=== PATIENT | male | born 1990 | race African-American/Black ===

== ENCOUNTER → 2025-06-01 | Outpatient (CLI) | payer OTHER ==
[~2025-06-01] MED LIST: IBUP200C25 PO
[2025-06-01 19:12] LABS: BASO # 0.0 10^3/uL (0.0-0.2); BASO % 0.4 % (0.0-1.0); EOS # 0.1 10^3/uL (0.0-0.5); EOS % 0.6 % (0.0-3.0); LYMPH # 2.5 10^3/uL (1.5-5.0); LYMPH % 32.5 % (24.0-44.0); MONO # 0.7 10^3/uL (0.0-0.8); MONO % 9.3 % (2.0-8.0); NEUTROPHILS # 4.4 10^3/uL (1.5-8.5); NEUTROPHILS % 57.1 % (36.0-66.0); PLATELET COUNT, AUTOMATED 244 10^3/uL (150-450)
[2025-06-01 19:34] LABS: CALCIUM LEVEL 8.9 MG/DL (8.5-10.1); CARBON DIOXIDE LEVEL 29.0 MMOL/L (20-31); CHLORIDE LEVEL 104.0 MMOL/L (98-107); CREATININE FOR GFR 1.31 MG/DL (0.70-1.30); GLOMERULAR FILTRATION RATE 73.7 (>60); POTASSIUM SERUM 4.0 MMOL/L (3.5-5.1); SODIUM LEVEL 140.0 MMOL/L (136-145)
[2025-06-01 20:08] LABS: SICKLE CELL SCREEN NEGATIVE (NEGATIVE)
== END ==
LOC: M WUC 15:38
PROVIDERS: ATTEND Podiatrist
DX: Z01.812 Encounter for preprocedural laboratory examination (principal); M20.11 Hallux valgus (acquired), right foot; M79.671 Pain in right foot

== ENCOUNTER 2025-06-17 08:40 | Day surgery (SDC) | payer OTHER ==
[~2025-06-17] VITALS: Ht 175.3 cm; Wt 73.5 kg
[2025-06-17] MEDS ORDERED: MIDAZOLAM INJ 2 MG/2 ML VIAL As Ordered ONE (09:14)
[2025-06-17] MEDS ORDERED: LIDOCAINE 2% 100 MG/5 ML SDV (FOR ANES.) As Ordered ONE (09:15)
[2025-06-17] MEDS ORDERED: ONDANSETRON 4MG 2ML VIAL As Ordered ONE (09:15)
[2025-06-17] MEDS ORDERED: KETOROLAC 30 MG/ML 1 ML VIAL As Ordered ONE (09:15)
[2025-06-17] MEDS ORDERED: ACETAMINOPHEN 1000MG/100ML IV BAG As Ordered ONE (09:16)
[2025-06-17] MEDS: LR 1,000 ML IV SCH (09:20)
[2025-06-17] MEDS: ceFAZolin SOD 2 GM IV ONCE IV ONE (10:15)
[2025-06-17] MEDS: LIDOCAINE 2% MDV 20 ML VIAL As Ordered ONE (10:19)
[2025-06-17] MEDS: GENTAMICIN SULF 80 MG/2 ML VIAL As Ordered ONE (10:55)
[2025-06-17] MEDS: dexAMETHasone 4 MG/ML 1 ML VIAL As Ordered ONE (11:04)
[2025-06-17 13:30] VITALS: BP 124/72; TEMP 97; O2SAT 100
== END 2025-06-17 12:58 | disposition home or self-care (01) ==
LOC: M SDC 08:40 → EDUNIT# 10:00 → M SDC 12:58
PROVIDERS: ATTEND Podiatrist
DX: M20.11 Hallux valgus (acquired), right foot (principal); F17.210 Nicotine dependence, cigarettes, uncomplicated
CPT/HCPCS: 28296; 73630; 76000; 88300; 97116; C1713; J0131; J0665; J0688; J1100; J1580; J1885; J2250; J2405; J3010